=== PATIENT | male | born 1955 | race Caucasian/White ===

== ENCOUNTER 2021-05-02 22:22 | Inpatient (IN) | payer OTHER ==
[~2021-05-02] VITALS: Ht 188 cm; Wt 104.3 kg
[~2021-05-02 22:22] MED LIST: ALLO300 PO; AMLO10 PO; ASPI325EC PO; ATOR20 PO; CHLO25B PO; INSU100I6 SC; LISI20 PO; METF500 PO; MULVITMIND PO; VENL75ER PO
[2021-05-02 23:07] LABS: BASOPHILS ABSOLUTE AUTO 0.02 K/mm3 (0.00-0.23); BASOPHILS PERCENT AUTO 0 % (0-2); EOSINOPHILS ABSOLUTE AUTO 0.01 K/mm3 (0.00-0.68); EOSINOPHILS PERCENT AUTO 0 % (0-6); Hematocrit 40.4 % (37.0-53.0); Hemoglobin 13.8 g/dL (13.5-17.5); Mean Corpuscular HGB 29.4 pg (26.0-34.0); Mean Corpuscular HGB Conc 34.2 g/dL (31.5-36.5); Mean Corpuscular Volume 86 fL (80-100); Mean Platelet Volume 9.5 fL (9.1-12.4); Platelet Count 416 K/mm3 (150-400); RDW Coefficient Variation 14.2 % (11.7-14.2); RDW Standard Deviation 44.3 fL (35.1-46.3); White Blood Cell Count 12.38 K/mm3 (4.00-11.30)
[2021-05-02 23:08] LABS: IMMATURE GRAN ABSOLUTE AUTO 0.12 K/mm3 (0.00-0.10); IMMATURE GRAN PERCENT AUTO 1 % (0-1); LYMPHOCYTES ABSOLUTE AUTO 1.35 K/mm3 (0.84-5.20); LYMPHOCYTES PERCENT AUTO 11 % (21-46); MONOCYTES ABSOLUTE AUTO 0.81 K/mm3 (0.16-1.47); MONOCYTES PERCENT AUTO 7 % (4-13); NEUTROPHILS ABSOLUTE AUTO 10.07 K/mm3 (1.96-9.15); NEUTROPHILS PERCENT AUTO 81 % (41-73)
[2021-05-02 23:23] LABS: Albumin, Blood 2.8 g/dL (3.4-5.0); Albumin/Globulin Ratio 0.5 (0.8-1.8); Bilirubin, Total 0.6 mg/dL (0.1-1.0); Bun/Creatinine Ratio 28.4 (12.0-20.0); Calcium, Blood 9.1 mg/dL (8.5-10.1); Creatinine, Blood 3.27 mg/dL (0.60-1.20); Globulin, Blood 5.1 g/dL (2.2-4.0); Magnesium, Blood 2.3 mg/dL (1.6-2.4); Potassium, Blood 3.1 mmol/L (3.5-5.5); Total Protein, Blood 7.9 g/dL (6.4-8.2)
[2021-05-02 23:24] LABS: International Normalized Ratio 0.99; Prothrombin Time Results 10.7 Sec (9.7-11.5)
[2021-05-03 00:46] LABS: Troponin I 0.016 ng/mL (0.000-0.040)
[2021-05-03 04:59] LABS: BASOPHILS ABSOLUTE AUTO 0.02 K/mm3 (0.00-0.23); BASOPHILS PERCENT AUTO 0 % (0-2); EOSINOPHILS PERCENT AUTO 0 % (0-6); Hematocrit 35.1 % (37.0-53.0); Hemoglobin 11.8 g/dL (13.5-17.5); Mean Corpuscular HGB 29.6 pg (26.0-34.0); Mean Corpuscular HGB Conc 33.6 g/dL (31.5-36.5); Mean Corpuscular Volume 88 fL (80-100); Mean Platelet Volume 9.6 fL (9.1-12.4); Platelet Count 346 K/mm3 (150-400); RDW Coefficient Variation 14.3 % (11.7-14.2); RDW Standard Deviation 45.8 fL (35.1-46.3); Red Blood Cell Count 3.99 M/mm3 (4.30-5.90); White Blood Cell Count 10.98 K/mm3 (4.00-11.30)
[2021-05-03 05:18] LABS: Albumin, Blood 2.4 g/dL (3.4-5.0); Albumin/Globulin Ratio 0.5 (0.8-1.8); Bilirubin, Total 0.5 mg/dL (0.1-1.0); Bun/Creatinine Ratio 31.8 (12.0-20.0); Calcium, Blood 8.3 mg/dL (8.5-10.1); Creatinine, Blood 2.92 mg/dL (0.60-1.20); Globulin, Blood 4.4 g/dL (2.2-4.0); Potassium, Blood 3.9 mmol/L (3.5-5.5); Total Protein, Blood 6.8 g/dL (6.4-8.2)
[2021-05-03 05:37] LABS: IMMATURE GRAN ABSOLUTE AUTO 0.11 K/mm3 (0.00-0.10); IMMATURE GRAN PERCENT AUTO 1 % (0-1); LYMPHOCYTES PERCENT AUTO 6 % (21-46); MONOCYTES ABSOLUTE AUTO 0.71 K/mm3 (0.16-1.47); MONOCYTES PERCENT AUTO 7 % (4-13); NEUTROPHILS ABSOLUTE AUTO 9.44 K/mm3 (1.96-9.15); NEUTROPHILS PERCENT AUTO 86 % (41-73)
--- NOTE | 2021-05-03 17:01 | NUR ---
SHIFT SUMMARY PATIENT ALERT AND ORIENTED THIS SHIFT. PATIENT ON 11L O2 NON-REBREATHER. O2 SATS > 90. PATIENT LYING IN BED THROUGHOUT THIS SHIFT. PATIENT VERY EXHAUSTED THIS AM. PATIENT MORE ALERT AFTER SLEEPING THROUGH THE MORNING. PATIENT CURRENTLY LYING IN BED RESTING.
--- NOTE | 2021-05-04 06:00 | NUR ---
SHIFT SUMMARY: PATIENT IS AOX3 BUT VERY FORGETFUL. DOES NOT LEAVE HIS OXYGEN ON, CONSTANTLY FINDING HIM WITH LOW SATURATION AND NEEDING HIS OXYGEN BACK ON. PLACED ON 15L OXIMZER TO KEEP SATS ABOVE 90%. NO PAIN. HAVING ACCIDENTS IN BED, POOR APPETITE. TO WEAK TO EVEN GET UP AND ALLOW US TO CHANGE HIS BED. COURSE LUNG SOUNDS. BLOOD SUGAR IN 100'S, NO COVERAGE NEEDED. NO PAIN. OCCATIONAL DRY COUGH. LOOSE BM. WEAK, LIGHTHEADED, NO TASTE. CALL LIGHT REMAINED IN REACH.
--- NOTE | 2021-05-04 19:39 | NUR ---
PT REMAINS ALERT AND ORIENTED X4, NO INCREASED O2 NEEDS THIS SHIFT. NOT EATING HIS MEALS AND RESTING MOST OF THE DAY. PT EDUCATED ON NEED TO KEEP O2 ON HIS NOSE. STAFF WILL CONT TO MONITOR.
--- NOTE | 2021-05-04 19:41 | NUR ---
FAMILY NOTE... PT DAUGHTER CALLED TWICE THIS SHIFT. FIRTS TIME FOR AN UPDATE. SECOND CALL PT DAUGHTER CALLED TO ASK ABOUT TRANSFER PROCEDURE. WITH THE CHARGE NURSE ADVICE, PT DAUGHTER WAS INFORMED RE PROCEDURE AND EMPLORED TO ALERT US IF A TRANSFER WAS DESIRED SO THAT CALLS COULD BE MADE TO MD. PT DAUGHTER AGREED. AT SHIFT CHANGE, PT DAUGHTER CALLED THE UNIT TO INFORM STAFF THAT AN AMBULANCE WOULD BE PICKING THE PT UP. UPON CHECKING IN WITH THE PT TO SEE IF THIS WAS WHAT HE DESIRED, THE PT STATED "NO, I AM WELL CARED FOR HERE. I DO NOT WANT TO LEAVE." PT WAS ASSISTED IN CALLING HIS FAMILY. LASTLY, PT CALLED TO SEE IF SHE COULD COME IN. EDUCATED ON VISITOR POLICY. THEN PT CALLED [facility] AND SPOKE WITH GUARDS, WHO BROUGHT A HANDWRITTEN MESSAGE TO ME STATING "THE PT'S WAS VERY UPSET AND CRING, SAYING THAT SHE HAS BEEN TRYING TO GET AHOLD OF US FOR THREE DAYS WITH NO RESPONSE." WORTH NOTING, THE PATIENTS HAS BEEN CONTACTED MANY TIMES THROUGH THE LAST FEW DAYS, WELL THE PATIENTS DAUGHTER. BOTH DAUGHTER AND WERE ASKED TO ASIGN A MAIN CONTACT FOR PT MANY PHONE CALL/UPDATES HAVE BEEN MADE DAILY TO RELAY THE SAME INFORMATION.
[2021-05-05 05:41] LABS: Hematocrit 39.3 % (37.0-53.0); Hemoglobin 13.4 g/dL (13.5-17.5); Mean Corpuscular HGB 29.6 pg (26.0-34.0); Mean Corpuscular HGB Conc 34.1 g/dL (31.5-36.5); Mean Corpuscular Volume 87 fL (80-100); Mean Platelet Volume 9.4 fL (9.1-12.4); Platelet Count 507 K/mm3 (150-400); RDW Coefficient Variation 14.3 % (11.7-14.2); RDW Standard Deviation 45.8 fL (35.1-46.3); Red Blood Cell Count 4.52 M/mm3 (4.30-5.90); White Blood Cell Count 10.85 K/mm3 (4.00-11.30)
[2021-05-05 06:13] LABS: Bun/Creatinine Ratio 56.8 (12.0-20.0); Calcium, Blood 8.9 mg/dL (8.5-10.1); Creatinine, Blood 1.62 mg/dL (0.60-1.20); Potassium, Blood 3.4 mmol/L (3.5-5.5)
--- NOTE | 2021-05-05 07:05 | NUR ---
SHIFT SUMMARY: PATIENT TALKED TO AND FAMILY IN REGARDS TO THE DISCHARGE. HE DOES NOT WANT TO BE TRANSFERRED. WAS JUST WORRIED SHE HAD NOT GOTTEN AN UPDATE. DID CALL AND INFORM OF THE SITUATION. SHE DID REPORT THAT HE IS NON-COMPLIANT WITH CARE AND WAS NOT EATING AT HOME. ALL HE WANTS TO TO DO IS SLEEP ALL THE TIME. WILL NOT EVEN GET OUT OF BED TO CHANGE DIRTY LINEN. CONTINUES TO PULL OFF HIS OXIMIZER CAUSING HIS SATS TO BE IN THE 70'S. NOT ABLE TO TELL HOW LONG CAUSE HE DOES IT IN HIS SLEEP. TAKES A WHILE TO GET SATS BACK UP. TALKED TO HIM LONG ABOUT THIS BUT NOT SURE IF HE REMEMBERS. ENCOURAGE HIM TO EAT BUT HE IS STILL REFUSING. CONSTANT PLACEMENT OF O2 ON FACE IS NEEDED, AND NEED FOR PULSE OX SOON ONE IS AVAILABLE. ON 10LITERS AND SATS 94% WHEN HE KEEPS IT ON. CALL LIGHT IS IN REACH.
--- NOTE | 2021-05-05 16:41 | NUR ---
PT TRANSFERRED FROM [facility] ROOM 363 TO [facility] ICU 3-D- REPORT CALLED TO [facility] ICU. SENT [employer] CELL PHONE AND [employer] RENTAL MANAGER, [employer]. PT STOOD AND TRANSFERRED WITH SBA TO STRETCHER. AT THE TIME PT IS ON OXIMYXER 15L, LUNGS DIM IN THE BASES. SATS 94% ON CONT PULSE OX AND DESATS TO 84% WITH ACTIVITY AND RECOVERS WITHIN 5 MINUTES. REPORT GIVEN TO EMT'S AND PT HAS IF IN RAC.
== END 2021-05-05 15:16 | DRG 177 ==
LOC: ER 22:22 → MEDS 05-03 01:23
PROVIDERS: Family Medicine; Internal Medicine; Student in an Organized Health Care Education/Training Program; ADMIT Internal Medicine
PROC: 3E0333Z Introduction of Anti-inflammatory into Peripheral Vein, Percutaneous Approach (ICD-10-PCS; principal; 2021-05-03)
DX: U07.1 COVID-19 (principal); J12.82 Pneumonia due to coronavirus disease 2019; J96.01 Acute respiratory failure with hypoxia; G92 Toxic encephalopathy; N17.9 Acute kidney failure, unspecified; E87.1 Hypo-osmolality and hyponatremia; E87.6 Hypokalemia; I10 Essential (primary) hypertension; E86.0 Dehydration; F32.9 Major depressive disorder, single episode, unspecified; E78.00 Pure hypercholesterolemia, unspecified; E11.9 Type 2 diabetes mellitus without complications; M10.9 Gout, unspecified; Z98.890 Other specified postprocedural states; Z79.82 Long term (current) use of aspirin; Z79.4 Long term (current) use of insulin; Z79.899 Other long term (current) drug therapy
CPT/HCPCS: 36415; 70450; 71260; 80048; 80053; 82947; 83605; 83735; 84145; 84484; 85025; 85027; 85610; 85730; 87040; 93005; 93010; 94760; 94762; 96361; 96374; 99284-25; A9270; J1100; J1650; J7030; Q9967